=== PATIENT | female | born 1965 | race Caucasian/White ===

== ENCOUNTER 2018-02-16 07:47 | Day surgery (SDC) | payer OTHER ==
[2018-02-16] MEDS ORDERED: PROPOFOL 500 MG/50 ML EMU IV ONE (08:45)
[2018-02-16] MEDS ORDERED: LIDOCAINE HCL 1% MPF 30 SOL ONE (09:24)
[2018-02-16 09:49] VITALS: RESP 18
[2018-02-16 10:08] VITALS: BP 133/82; PULSE 73; TEMP 97.4; O2SAT 99
== END 2018-02-16 10:25 | disposition home or self-care (01) | DRG 951 ==
LOC: SURG 07:47
PROVIDERS: ATTEND Surgery
DX: Z12.11 Encounter for screening for malignant neoplasm of colon (principal)
CPT/HCPCS: J2001; J2704